=== PATIENT | male | born 1995 | race Caucasian/White ===

== ENCOUNTER 2022-11-06 12:01 | Emergency (ER) | payer SELFPAY ==
[2022-11-06] MEDS ORDERED: Prochlorperazine 10 MG/2 ML VIAL ONE (14:31)
[2022-11-06] MEDS ORDERED: Acetaminophen 500 MG TAB ONE (14:31)
[2022-11-06] MEDS ORDERED: Ketorolac Tromethamine 30 MG/ML VIAL ONE (14:32)
[2022-11-06] MEDS ORDERED: diphenhydrAMINE 50 MG/ML VIAL ONE (14:32)
== END 2022-11-06 16:30 | disposition home or self-care (01) ==
LOC: CSHERS 12:01
DX: R51.9 Headache, unspecified (principal)
CPT/HCPCS: 70450; 96374; 96375; J0780; J1200; J1885